=== PATIENT | female | born 1970 ===

== ENCOUNTER 2017-12-31 10:17 | Emergency (ER) | payer SELFPAY ==
[2017-12-31 10:27] VITALS: O2SAT 100
[2017-12-31] MEDS ORDERED: Sodium Chloride 0.9% 1,000 ML IV ONE (11:10)
[2017-12-31 11:57] LABS: HCG,QUALITATIVE URINE NEGATIVE (NEGATIVE)
[2017-12-31 12:02] LABS: ALB/GLOB RATIO 1.2 (1.0-2.1); ALBUMIN 3.7 g/dL (3.5-5.0); ALT/SGPT 27 U/L (9-52); AST/SGOT 29 U/L (14-36); BLOOD UREA NITROGEN 11 mg/dL (7-17); CALCIUM 8.8 mg/dl (8.6-10.4); GFR AFRICAN-AMERICAN > 60; GFR NON-AFRICAN AMERICAN > 60
[2017-12-31 12:04] LABS: SQUAMOUS EPITHIAL < 1 /hpf (0-5); URINE BILIRUBIN NEGATIVE (NEGATIVE); URINE BLOOD 2+ (NEGATIVE); URINE CLARITY Clear (Clear); URINE COLOR Yellow (YELLOW); URINE GLUCOSE (UA) NORMAL (Normal); URINE LEUKOCYTE ESTERASE NEG Leu/uL (Negative); URINE PROTEIN NEGATIVE (NEGATIVE); URINE UROBILINOGEN NORMAL mg/dL (0.2-1.0)
[2017-12-31 12:05] LABS: BASO % 0.4 % (0.0-2.0); EOS % 0.9 % (0.0-4.0); HEMOGLOBIN 12.8 g/dL (11.0-16.0); LYMPH # 1.4 K/uL (1.0-4.3); MEAN CELL VOLUME 91.6 fL (81.0-99.0); MEAN CORPUSCULAR HEMOGLOBIN 30.6 pg (27.0-31.0); MEAN CORPUSCULAR HGB CONC 33.4 g/dL (33.0-37.0); MEAN PLATELET VOLUME 8.2 fL (7.2-11.7); MONO # 0.4 K/uL (0.0-0.8); MONO % 8.8 % (0.0-10.0); NEUT # 2.9 K/uL (1.8-7.0); NEUT % 59.9 % (50.0-75.0); NRBC % 0.1 % (0.0-2.0); RBC 4.18 Mil/uL (3.80-5.20); RED CELL DISTRIBUTION WIDTH 13.9 % (11.5-14.5); WHITE BLOOD COUNT 4.8 K/uL (4.8-10.8)
--- NOTE | 2017-12-31 12:35 | C.PDOC ---
History Of Present Illness 47 year old female presents to the ED for evaluation of pelvic/groin pain with walking and persistent menses for 20 days. Patient states she is currently visiting the [place], and her PUBLIC DEFENDER is in [facility]. She had a normal pelvic exam and pap smear 7 months ago. Patient denies fever, chills, vomiting, diarrhea, flank pain, dysuria, vaginal discharge, or possibility of . Time Seen by Provider: 12/31/17 10:37 Chief Complaint (Nursing): Female Genitourinary History Per: Patient History/Exam Limitations: no limitations Onset/Duration Of Symptoms: Days Current Symptoms Are (Timing): Still Present Severity: Mild Quality Of Discomfort: "Pain" Associated Symptoms: denies: Fever, Chills, Vomiting, Diarrhea, Urinary Symptoms Additional History Per: Patient Abnormal Vaginal Bleeding: Yes Past Medical History Reviewed: Historical Data, Nursing Documentation, Vital Signs Vital Signs: Last Vital Signs Temp 98.4 F 12/31/17 10:26 Pulse 78 12/31/17 10:26 Resp 20 12/31/17 10:26 BP 158/89 H 12/31/17 10:26 Pulse Ox 100 12/31/17 12:53 - Medical History PMH: HTN Surgical History: No Surg Hx Family History: States: No Known Family Hx - Social History Hx Alcohol Use: Yes Hx Substance Use: No - Immunization History Hx Tetanus Toxoid Vaccination: No Hx Influenza Vaccination: No Hx Pneumococcal Vaccination: No Review Of Systems Constitutional: Negative for: Fever, Chills Respiratory: Negative for: Shortness of Breath Gastrointestinal: Negative for: Vomiting, Abdominal Pain, Diarrhea Genitourinary: Positive for: Vaginal Bleeding, Pelvic Pain, Other (groin pain ) . Negative for: Dysuria, Vaginal Discharge Skin: Negative for: Rash Physical Exam - Physical Exam Appears: Well, Non-toxic, No Acute Distress Skin: Normal Color, Warm, Dry, No Rash Eye(s): bilateral: Normal Inspection Oral Mucosa: Moist Neck: Supple Cardiovascular: Rhythm Regular, No Murmur Respiratory: Normal Breath Sounds, No Rales, No Rhonchi, No Wheezing Gastrointestinal/Abdominal: Normal Exam, Bowel Sounds, Soft, No Tenderness, No Guarding, No Rebound Back: Normal Inspection, No CVA Tenderness Neurological/Psych: Oriented x3 ED Course And Treatment - Laboratory Results Result Diagrams: 12/31/17 11:45 12/31/17 11:45 O2 Sat by Pulse Oximetry: 100 (on RA) Pulse Ox Interpretation: Normal Progress Note: Blood work, UA, UPreg and transvaginal US ordered and reviewed. Patient given IV NS bolus, did not want pain medication. Urine HCG is negative. Disposition - Disposition Disposition Time: 13:00 Condition: STABLE Forms: [facility] (Ukrainian) - Clinical Impression Clinical Impression: Menorrhagia - Scribe Statement The provider has reviewed the documentation as recorded by the Scribe (Swathi Carreon) Provider Attestation: All medical record entries made by the Scribe were at my direction and personally dictated by me. I have reviewed the chart and agree that the record accurately reflects my personal performance of the history, physical exam, medical decision making, and the department course for this patient. I have also personally directed, reviewed, and agree with the discharge instructions and disposition. Physician Patient Turnover Patient Signed Over To: Betsy Loredo Handoff Comments: transvaginal US
--- NOTE | 2017-12-31 13:09 | US ---
Pelvic ultrasound History: Pelvic pain. Bleeding. Comparison: None available. Technique: Real-time sonography was performed through the pelvis. Findings: Uterus: 8.7 x 4.5 x 5.5 centimeters. Heterogeneous echotexture. Retroverted. Intrauterine device noted. Endometrium measures up to 1.0 centimeters, heterogeneous. Heterogeneous to hypoechoic lesion seen within the uterine fundus measuring 1.1 x 1.3 x 1.4 centimeters suggestive for a fibroid lesion. Right ovary: 4.3 x 2.0 x 2.8 centimeters. Normal flow. Hypoechoic cyst measuring 2.3 x 1.7 x 1.5 centimeters. Left ovary: 2.1 x 1.4 x 2.2 centimeters. Normal flow. Impression: Intrauterine device noted within the uterus. Heterogeneous hypoechoic lesion seen within the uterine fundus measuring up to 1.4 centimeters suggestive for a fibroid lesion. 2.3 centimeter right ovarian cyst. Heterogeneous and somewhat prominent endometrium measuring up to 1.0 centimeters. Clinical correlation.
[2017-12-31 13:26] VITALS: BP 161/89; PULSE 61; RESP 18; TEMP 98.7
== END 2017-12-31 13:26 | disposition home or self-care (01) ==
LOC: C.ER 10:17
DX: N92.0 Excessive and frequent menstruation with regular cycle (principal)
CPT/HCPCS: 76830; 80053; 81001; 84703; 85025; 96360; 99284; J7030